=== PATIENT | female | born 1935 | race Caucasian/White ===

== ENCOUNTER 2019-04-07 03:15 | Observation (INO) ==
[2019-04-07] MEDS ORDERED: DEXTROSE 50%-WATER 50 ML SYRG IV PRN (03:28)
--- NOTE | 2019-04-07 03:35 | ERNOTE ---
Medical Problem HPI - General Time Seen by Provider: 04/07/19 03:19 Source: EMS Exam Limitations: no limitations - Immun/Allergies/Home Medications Allergies/Adverse Reactions: Allergies No Known Allergies Allergy (Verified 04/03/19 13:57) Home Medications: HOME MEDICATIONS apixaban 5 mg tablet 5 mg PO BID 12/25/17 [Last Taken Unknown] rosuvastatin 5 mg tablet 5 mg PO DAILY 12/25/17 [Last Taken Unknown] lisinopril 20 mg tablet 20 mg PO BID tab 02/04/18 [Last Taken Unknown] olopatadine 0.1 % eye drops 1 drp OP QAM ml 02/04/18 [Last Taken Unknown] loratadine 10 mg tablet 10 mg PO DAILY #30 tab 10/13/18 [Last Taken Unknown] magnesium hydroxide 400 mg/5 mL oral suspension 30 ml PO DAILY PRN #118 ml 11/07/18 [Last Taken Unknown] atenolol 25 mg tablet 12.5 mg PO BID #60 tab 11/21/18 [Last Taken Unknown] donepezil 10 mg tablet 10 mg PO HS #30 tab 11/21/18 [Last Taken Unknown] hydrochlorothiazide 25 mg tablet 25 mg PO DAILY #30 tab 11/21/18 [Last Taken Unknown] probenecid 500 mg-colchicine 0.5 mg tablet 1 tab PO BID #60 tab 11/21/18 [Last Taken Unknown] amlodipine 5 mg tablet 5 mg PO DAILY #30 tab 03/20/19 [Last Taken Unknown] Acetaminophen 1 - 2 tab PO Q6H PRN 04/07/19 [Last Taken Unknown] - History of Present History Narrative: Patient brought by EMS from the [facility] unit. With history of blood sugar down to 47 this morning. EMS state they gave an amp of D50 IV and blood sugar went up to [address] here blood sugar was down to 147 and soon after we checked and found his blood sugar to be 119. Patient denies any symptoms at this time. Patient denies any blood sugar abnormality in her medical history Timing: getting worse Severity: moderate Review of Systems - Review of Systems Constitutional: Absent: recent illness, fever, chills ENT: Absent: nose congestion, nasal drainage Respiratory: Absent: shortness of breath, cough Cardiology: Absent: chest pain Gastrointestinal/Abdominal: Absent: nausea, vomiting, abdominal pain Genitourinary: Absent: frequency, dysuria Musculoskeletal: Absent: back pain Skin: Absent: rash Neurological: Absent: headache, dizziness/light-headedness Endocrine: Present: excessive sweating Medical History (Last Reviewed 04/07/19 @ 03:31 by Ruddy Steele DO) Osteoporosis (Chronic) Congestive heart failure (CHF) (Chronic) Hypertension (Chronic) Onset Date: Unknown Hyperlipidemia (Chronic) Onset Date: Unknown Dementia (Chronic) Onset Date: Unknown Atrial fibrillation (Chronic) Onset Date: Unknown Fatigue Onset Date: Unknown Herniated disc, cervical Onset Date: Unknown Breast cancer Onset Date: Unknown Surgical History: Surgical History (Last Reviewed 04/07/19 @ 03:31 by Ruddy Steele DO) H/O colonoscopy Onset Date: ~2006 [facility] [place] [place] H/O total mastectomy of right breast Onset Date: ~1998 [facility]-modified radical mastectomy H/O: hysterectomy Onset Date: ~1959 Dr Navarro at [facility] History of thyroidectomy Onset Date: ~1963 [facility] Hx of cholecystectomy Onset Date: ~2003 Dr Smith at [facility] [place], [place] reconstructive breast surgery Onset Date: ~1998 Dr Jim-[facility] Family History: Family History (Last Reviewed 04/07/19 @ 03:31 by Ruddy Steele DO) Mother Alzheimers disease Dementia Father Diabetes Social History: (Last Reviewed 04/07/19 @ 03:31 by Ruddy Steele DO) Social History: detention: Yes detention comment: Shraddha Mary Marital status: Single Highest education level completed: high school graduate Tobacco: Smoking Status: Never smoker Alcohol: alcohol intake: never Substance Use: substance use type: unknown Dietary Habits: caffeine: Yes Physical Exam - Physical Exam General Appearance: Present: wd/wn, alert, no apparent distress Head Exam: Present: normal inspection, no evidence of injury Ears, Nose, Throat: Present: normal ENT inspection Neck: Present: normal inspection, nontender Respiratory: Present: no respiratory distress, normal breath sounds, no accessory muscle use, chest nontender, lungs clear Cardiovascular/Chest: Present: regular rate, rhythm, no murmur Gastrointestinal/Abdominal: Present: normal bowel sounds, nontender, nondistended, soft Extremity Exam: Present: normal inspection, normal range of motion, no edema Neurological Exam: Present: alert, oriented, normal mood/affect, no motor/sensory deficits Skin Exam: Present: normal color, warm/dry Lymphatic Exam: Present: no adenopathy Progress - Results and Orders Patient's Lab Results:: I have reviewed the patient's lab results. Results and Orders: Laboratory Tests 04/07/19 04/07/19 03:50 03:50 WBC 9.9 Hgb 10.8 L Hct 33.1 L Plt Count 171 Sodium 136 Potassium 3.8 D Chloride 100 Anion Gap 10.5 BUN 19 Creatinine 1.02 Random Glucose 48 L Calcium 8.1 Total Bilirubin 0.2 AST 21 ALT 12 L Alkaline Phosphatase 74 Total Protein 5.9 L Albumin 2.9 L - Vital Signs Patient's Vital Signs:: I have reviewed the patient's vital signs. Vital Signs: Vital Signs 04/07/19 03:17 Temperature 36.5 C Pulse Rate 67 Respiratory Rate 16 Blood Pressure 137/82 O2 Sat by Pulse Oximetry 99 - EKG EKG #1 EKG: atrial fibrillation - with SVR. EKG read: Interp. by me - Progress/Reassessment Progress:: Unchanged Progress Note-Subjective: 04/07/19 04:00 Patient continues in a-fib and having episodes of bradycardia down into 30s, she is asymptomatic. We attempted to catch the slow episodes but they are very short and we were unable to catch it on EKG. 04/07/19 04:51 Blood sugars continued to drop see nursing notes for details. We started a liter of D10 but sugar dropped to 47. She was given an amp of D50 and D10 was allowed to continue running. 04/07/19 06:40 Blood sugars increased 30 mg/dL from last check. Will hold the D10 and see if blood sugars continue to stabilize. If not she may need to be admitted with IV D10 and close watch on her sugars. 04/07/19 06:53 Blood sugar dropped down to 105 with removal of D10 infusion. D10 was restarted. 04/07/19 07:36 Attempted to get hold of Dr. Powell who was listed on her sheet from the [place] as primary care I left a message on his main number and got no reply and secondary number was no longer in service. I spoke with Dr. Morales admissions nurse for admissions he agreed to accept the patient. Departure Clinical Impression: Hypoglycemia, Bradycardia UTI (urinary tract infection) Qualifiers: Urinary tract infection type: acute cystitis Hematuria presence: with hematuria Qualified Code(s): N30.01 - Acute cystitis with hematuria - Departure Disposition: Still a patient Condition: Stable
[2019-04-07 03:52] LABS: Hematocrit 33.1 % (37.0-47.0); Hemoglobin 10.8 gm/dL (12.5-16.0); Mean Cell Volume 93.2 fl (78-100); Mean Corpuscular Hemoglobin 30.4 pg (27-31); Mean Corpuscular Hgb Conc 32.6 g/dl (32-36); Mean Platelet Volume 11.3 fl (8-12.5); Platelet Count 171 K/mm3 (150-450); Red Blood Count 3.55 M/mm3 (4.2-5.4); Red Cell Distribution Width 14.7 % (11.5-14.0); White Blood Count 9.9 K/mm3 (4.0-10.5)
[2019-04-07 03:56] LABS: Total Cells Counted 100
[2019-04-07] MEDS ORDERED: DEXTROSE 10 % IN WATER 1,000 ML IV ONE (03:59)
[2019-04-07 04:05] LABS: Albumin * 2.9 gm/dl (3.4-5.0); Anion Gap 10.5 mmol/L (6.8-13.8); BUN/Creatinine Ratio 18.6 (9.0-21.6); Bilirubin, Total 0.2 mg/dL (0.0-1.1); Ca. Corrected For Albumin 8.7 mg/dL (8.4-10.2); Calcium * 8.1 mg/dL (7.9-10.9); Carbon Dioxide 29.3 mmol/L (24-32.6); Potassium 3.8 mmol/L (3.4-4.6); Total Protein 5.9 gm/dL (6.2-8.2)
[2019-04-07 04:10] LABS: Band 4 % (0-2.0); Eosinophil 2 % (0-3); Immature Granulocyte 2 (0-1); Lymphocyte 24 % (20-51); Monocyte 11 % (0-9); Neutrophil 57 % (42-75); Neutrophil # 5.6 K/mm3 (1.3-6.0)
[2019-04-07 04:11] LABS: Poikilocytosis 1+
[2019-04-07 04:54] LABS: Urine Bilirubin Negative (NEGATIVE); Urine Blood 25 /ul (NEGATIVE); Urine Ketone Negative (NEGATIVE); Urine Protein Negative (NEGATIVE); Urine Specific Gravity 1.015 SP.GR. (1.005-1.010); Urine Urobilinogen Normal (NORMAL); Urine pH 5.5 pH (5.0-7.0)
[2019-04-07 05:02] LABS: Urine Appearance Cloudy (CLEAR); Urine Bacteria 2+; Urine Color Yellow; Urine Nitrite Positive (NEGATIVE); Urine RBC 0-5 /hpf (0-5)
[2019-04-07] MEDS ORDERED: cefTRIAXone SODIUM 1,000 MG/100 ML BAG IV ONE (06:02)
[2019-04-07] MEDS ORDERED: DEXTROSE 10 % IN WATER 1,000 ML IV SCH (09:30)
[2019-04-07] MEDS ORDERED: MAGNESIUM HYDROXIDE 30 ML UDC PO PRN (19:41)
[2019-04-07] MEDS ORDERED: ACETAMINOPHEN 500 MG TABLET PO PRN (19:41)
[2019-04-07] MEDS ORDERED: ROSUVASTATIN CALCIUM 10 MG TABLET PO SCH (21:00)
[2019-04-07] MEDS ORDERED: DONEPEZIL HCL 10 MG TABLET PO SCH (21:00)
[2019-04-07] MEDS: amLODIPine BESYLATE 5 MG TABLET PO SCH (21:16)
[2019-04-07] MEDS: HYDROCHLOROTHIAZIDE 25 MG TABLET PO SCH (21:16)
[2019-04-07] MEDS: APIXABAN 5 MG TABLET PO SCH (21:16)
[2019-04-07] MEDS ORDERED: LISINOPRIL 10 MG TABLET ONE (21:37)
[2019-04-07] MEDS: LISINOPRIL 20 MG TABLET PO SCH (21:40)
[2019-04-07] MEDS: COLCHICINE 0.6 MG TABLET PO SCH (21:41)
[2019-04-07] MEDS: PROBENECID 500 MG TABLET PO SCH (21:41)
--- NOTE | 2019-04-07 23:39 | HP ---
Chief Complaint - Chief Complaint Date of Service: 04/07/19 Time of Service: 12:45 Chief Complaint: Hypoglycemia History of Present Illness: Stacy is an 83 yo female with hypertension and dementia. She resides at [facility]. She does not have a history of diabetes or hypoglycemia but was found to have low blood sugars as low as 40s at [facility]. She was given food to increase glucose. Glucose would improve but she continued to require more and more food to keep her sugars normal before it would drop again. With continued episodes of hypoglycemia she was sent to [facility] ER by EMS. Enroute she was given amp of D50 due to hypoglycemia again in the 40s. In the ER she was give fluids including D10, but every time the glucose corrected and the glucose infusion was discontinued she would drop again. She does not take medications that would lower blood sugars and there is no report of incorrect medications being given or a concern that she took another residents medications. She has otherwise been in her usual state of health without any concerns. She has chronic dementia and history from the patient is limited. She has no concerns at this time. Medical History (Last Reviewed 04/07/19 @ 08:33 by Annetta Gutierrez RN) Osteoporosis (Chronic) Congestive heart failure (CHF) (Chronic) Hypertension (Chronic) Onset Date: Unknown Hyperlipidemia (Chronic) Onset Date: Unknown Dementia (Chronic) Onset Date: Unknown Atrial fibrillation (Chronic) Onset Date: Unknown Fatigue Onset Date: Unknown Herniated disc, cervical Onset Date: Unknown Breast cancer Onset Date: Unknown Surgical History: Surgical History (Last Reviewed 04/07/19 @ 08:33 by Annetta Gutierrez RN) H/O colonoscopy Onset Date: ~2006 Dr Mary Ellen Schneider at [facility] in [place], [place] H/O total mastectomy of right breast Onset Date: ~1998 [facility]-modified radical mastectomy H/O: hysterectomy Onset Date: ~1959 Dr Navarro at [facility] History of thyroidectomy Onset Date: ~1963 [facility] Hx of cholecystectomy Onset Date: ~2003 Dr Smith at [facility] in [place], [place] reconstructive breast surgery Onset Date: ~1998 Dr Jim-[facility] Family History: Family History (Last Reviewed 04/07/19 @ 08:33 by Annetta Gutierrez RN) Mother Alzheimers disease Dementia Father Diabetes Social History: (Last Reviewed 04/07/19 @ 08:33 by Annetta Gutierrez RN) Social History: longterm: Yes longterm comment: Shraddha Hernandez Marital status: Single Highest education level completed: high school graduate Tobacco: Smoking Status: Never smoker Alcohol: alcohol intake: never Substance Use: substance use type: unknown Dietary Habits: caffeine: Yes Review Of Systems (GEN) - Review of Systems Additional Comments: ROS is difficult due to dementia Immunizations: IMMUNIZATION HX History of Influenza Vaccine More Information Required Hx Pneumococcal Vaccination More Information Required Allergies/Adverse Reactions: Allergies Allergy/AdvReac Type Severity Reaction Status Date / Time No Known Allergies Allergy Verified 04/07/19 08:33 Home Medications: HOME MEDICATIONS apixaban 5 mg tablet 5 mg PO BID 12/25/17 [Last Taken Unknown] rosuvastatin 5 mg tablet 5 mg PO .QHS 12/25/17 [Last Taken Unknown] lisinopril 20 mg tablet 20 mg PO BID tab 02/04/18 [Last Taken Unknown] olopatadine 0.1 % eye drops 1 drp OP QAM ml 02/04/18 [Last Taken Unknown] loratadine 10 mg tablet 10 mg PO DAILY #30 tab 10/13/18 [Last Taken Unknown] magnesium hydroxide 400 mg/5 mL oral suspension 30 ml PO DAILY PRN #118 ml 11/07/18 [Last Taken Unknown] atenolol 25 mg tablet 12.5 mg PO BID #60 tab 11/21/18 [Last Taken Unknown] donepezil 10 mg tablet 10 mg PO HS #30 tab 11/21/18 [Last Taken Unknown] hydrochlorothiazide 25 mg tablet 25 mg PO DAILY #30 tab 11/21/18 [Last Taken Unknown] probenecid 500 mg-colchicine 0.5 mg tablet 1 tab PO BID #60 tab 11/21/18 [Last Taken Unknown] amlodipine 5 mg tablet 5 mg PO DAILY #30 tab 03/20/19 [Last Taken Unknown] Acetaminophen 1 - 2 tab PO Q6H PRN 04/07/19 [Last Taken Unknown] Exam - Exam Vital Signs: Vital Signs - Last Taken Temp 36.4 C 04/07/19 22:11 Pulse 80 04/07/19 22:11 Resp 24 H 04/07/19 22:11 BP 177/67 H 04/07/19 22:11 Pulse Ox 97 04/07/19 22:11 Constitutional: Present: Alert, Cooperative, No distress. Absent: Oriented x3 Eye Exam: bilateral eye: normal inspection Respiratory: Present: lungs clear, normal breath sounds Cardiovascular/Chest: Present: irregularly irregular Peripheral Pulses: radial (R): 2+, radial (L): 2+ Abdomen: Present: Normal bowel sounds, soft, nontender, nondistended Skin Exam: Present: normal color, warm/dry, no cyanosis Eye contact: Present: cooperative, good eye contact, normal speech Thoughts: Absent: delusions Diagnostic Studies: Abnormal Lab Results 04/07/19 04/07/19 04/07/19 Range/Units 03:50 03:50 04:55 RBC 3.55 L (4.2-5.4) M/mm3 Hgb 10.8 L (12.5-16.0) gm/dL Hct 33.1 L (37.0-47.0) % RDW 14.7 H (11.5-14.0) % Band Neuts % (Manual) 4 H (0-2.0) % Monocytes % (Manual) 11 H (0-9) % Immature Granulocytes 2 H (0-1) Monocytes # (Manual) 1.1 H (0.0-1.0) k/mm3 Est GFR (Non-Af Amer) 55 L (60-130) mL/min Random Glucose 48 L (70-110) mg/dL ALT 12 L (19-67) U/L Total Protein 5.9 L (6.2-8.2) gm/dL Albumin 2.9 L (3.4-5.0) gm/dl Urine Blood 25 H (NEGATIVE) /ul Urine Nitrate Positive H (NEGATIVE) Ur Leukocyte Esterase 100 H (NEGATIVE) /ul Urine WBC 10-25 H (0-5) /hpf Ur Epithelial Cells 5-10 H (0-5) /hpf Urine Bacteria 2+ H (NONE) Laboratory Results WBC 9.9 K/mm3 (4.0-10.5) 04/07/19 03:50 RBC 3.55 M/mm3 (4.2-5.4) L 04/07/19 03:50 Hgb 10.8 gm/dL (12.5-16.0) L 04/07/19 03:50 Hct 33.1 % (37.0-47.0) L 04/07/19 03:50 MCV 93.2 fl (78-100) 04/07/19 03:50 MCH 30.4 pg (27-31) 04/07/19 03:50 MCHC 32.6 g/dl (32-36) 04/07/19 03:50 RDW 14.7 % (11.5-14.0) H 04/07/19 03:50 Plt Count 171 K/mm3 (150-450) 04/07/19 03:50 MPV 11.3 fl (8-12.5) 04/07/19 03:50 Neutrophils % (Manual) 57 % (42-75) 04/07/19 03:50 Band Neuts % (Manual) 4 % (0-2.0) H 04/07/19 03:50 Lymphocytes % (Manual) 24 % (20-51) 04/07/19 03:50 Monocytes % (Manual) 11 % (0-9) H 04/07/19 03:50 Eosinophils % (Manual) 2 % (0-3) 04/07/19 03:50 Immature Granulocytes 2 (0-1) H 04/07/19 03:50 Neutrophils # (Manual) 5.6 K/mm3 (1.3-6.0) 04/07/19 03:50 Lymphocytes # (Manual) 2.4 k/mm3 (1.5-3.5) 04/07/19 03:50 Monocytes # (Manual) 1.1 k/mm3 (0.0-1.0) H 04/07/19 03:50 Eosinophils # (Manual) 0.2 k/mm3 (0.0-0.7) 04/07/19 03:50 Poikilocytosis 1+ 04/07/19 03:50 Sodium 136 mmol/L (132-142) 04/07/19 03:50 Plasma Sodium 135 mmol/L (130-142) 04/07/19 03:50 Potassium 3.8 mmol/L (3.4-4.6) D 04/07/19 03:50 Chloride 100 mmol/L (97-106) 04/07/19 03:50 Carbon Dioxide 29.3 mmol/L (24-32.6) 04/07/19 03:50 Anion Gap 10.5 mmol/L (6.8-13.8) 04/07/19 03:50 BUN 19 mg/dL (3-23) 04/07/19 03:50 Creatinine 1.02 mg/dL (0.4-1.4) 04/07/19 03:50 Est GFR (Non-Af Amer) 55 mL/min (60-130) L 04/07/19 03:50 BUN/Creatinine Ratio 18.6 (9.0-21.6) 04/07/19 03:50 Random Glucose 48 mg/dL (70-110) L 04/07/19 03:50 Calcium 8.1 mg/dL (7.9-10.9) 04/07/19 03:50 Calcium Adj for Albumin 8.7 mg/dL (8.4-10.2) 04/07/19 03:50 Total Bilirubin 0.2 mg/dL (0.0-1.1) 04/07/19 03:50 AST 21 U/L (0-48) 04/07/19 03:50 ALT 12 U/L (19-67) L 04/07/19 03:50 Alkaline Phosphatase 74 U/L (50-170) 04/07/19 03:50 Total Protein 5.9 gm/dL (6.2-8.2) L 04/07/19 03:50 Albumin 2.9 gm/dl (3.4-5.0) L 04/07/19 03:50 Urine Color Yellow 04/07/19 04:55 Urine Appearance Cloudy (CLEAR) 04/07/19 04:55 Urine pH 5.5 pH (5.0-7.0) 04/07/19 04:55 Ur Specific [place] 1.015 SP.GR. (1.005-1.010) 04/07/19 04:55 Urine Protein Negative mg/dL (NEGATIVE) 04/07/19 04:55 Urine Glucose (UA) Negative mg/dL (NEGATIVE) 04/07/19 04:55 Urine Ketones Negative mg/dL (NEGATIVE) 04/07/19 04:55 Urine Blood 25 /ul (NEGATIVE) H 04/07/19 04:55 Urine Nitrate Positive (NEGATIVE) H 04/07/19 04:55 Urine Bilirubin Negative mg/dl (NEGATIVE) 04/07/19 04:55 Urine Urobilinogen Normal EU/dl (NORMAL) 04/07/19 04:55 Ur Leukocyte Esterase 100 /ul (NEGATIVE) H 04/07/19 04:55 Urine RBC 0-5 /hpf (0-5) 04/07/19 04:55 Urine WBC 10-25 /hpf (0-5) H 04/07/19 04:55 Ur Epithelial Cells 5-10 /hpf (0-5) H 04/07/19 04:55 Urine Bacteria 2+ (NONE) H 04/07/19 04:55 Urine Culture Comments Culture to follow 04/07/19 04:55 Assessment/Plan - Narrative Narrative: Stacy is an 83 yo female with chronic alzheimer's dementia with recent episodes of hypoglycemia. She is not a diabetic and does not take medications that could cause hypoglycemia. Evaluation in the ER does show suspicion of UTI and she was given Rocephin. Culture pending. There is no report of Stacy getting diabetic medication. Consider insulin secreting tumor. Consider hypoglycemia induced UTI. Will continue glucose infusion per bag followed by discontinue glucose infusion and monitoring glucose. If glucose continues to drop will continue further glucose infusion as needed. Will evaluate bloodwork for testing for endogenous and exogenous causes of hypoglycemia with C peptide, insulin, proinsulin, beta-hydroxybutarate, and sulfonylureas. Will admit to observation. Anticipate that if glucose can remain stable without further glucose infusions may be able to discharge to home tomorrow. - Assessment/Plan (1) Nondiabetic hypoglycemia Problem: Acute (2) UTI (urinary tract infection) Problem: Acute Qualifiers: Urinary tract infection type: acute cystitis Hematuria presence: with hematuria Qualified Code(s): N30.01 - Acute cystitis with hematuria (3) Alzheimers disease Problem: Chronic Qualifiers: Alzheimer's disease onset: unspecified onset Dementia behavioral disturbance: without behavioral disturbance Qualified Code(s): G30.9 - Alzheimer's disease, unspecified; F02.80 - Dementia in other diseases classified elsewhere without behavioral disturbance
[2019-04-08] MEDS ORDERED: ACETAMINOPHEN 500 MG TABLET PO PRN (07:30)
[2019-04-08] MEDS ORDERED: LORATADINE 10 MG TABLET PO SCH (09:00)
[2019-04-08] MEDS ORDERED: OLOPATADINE HCL 50 DROP BTL EACHEYE SCH (09:00)
[2019-04-08] MEDS ORDERED: CIPROFLOXACIN HCL 500 MG TABLET PO SCH (09:45)
--- NOTE | 2019-04-08 09:57 | DS ---
(1) UTI (urinary tract infection) Problem: Acute Qualifiers: Urinary tract infection type: acute cystitis Hematuria presence: with hematuria Qualified Code(s): N30.01 - Acute cystitis with hematuria (2) Nondiabetic hypoglycemia Problem: Resolved (3) Alzheimers disease Problem: Chronic Qualifiers: Alzheimer's disease onset: unspecified onset Dementia behavioral disturbance: without behavioral disturbance Qualified Code(s): G30.9 - Alzheimer's disease, unspecified; F02.80 - Dementia in other diseases classified elsewhere without behavioral disturbance Date of Discharge:: 04/08/19 Description of Stay: Stacy is an 83 yo female with chronic alzheimer's dementia who was found at the correction to have persistent hypoglycemia. She was brought to the ER who also continued to have problems with her glucose dropping despite t reatment. She was admitted on D10 fluids which was periodically stopped and glucose monitored. She required a couple bags of D10 before glucose was stable on its own. UA was suspicous for UTI and she was given a dose of rocephin in the ER. Urine culture is growing gram negative cheryle at this time. There is no report of accidentally getting diabetic medications so I believe the UTI is the cause to the hypoglycemia. She will be treated with Cipro 500mg BID x 5 days. I will have [facility] check her blood sugars ACHS for the next week and if not low may be discontinued. Procedures Performed: none Results and Findings: Pending Mircobiology Results 04/07/19 04:55 Urine,Voided Urine Culture - Preliminary Gram Negative Bacilli Lab Pending Results 04/07/19 03:50: WBC 9.9, RBC 3.55 L, Hgb 10.8 L, Hct 33.1 L, MCV 93.2, MCH 30.4, MCHC 32.6, RDW 14.7 H, Plt Count 171, MPV 11.3, Neutrophils % (Manual) 57, Band Neuts % (Manual) 4 H, Lymphocytes % (Manual) 24, Monocytes % (Manual) 11 H, Eosinophils % (Manual) 2, Immature Granulocytes 2 H, Neutrophils # (Manual) 5.6, Lymphocytes # (Manual) 2.4, Monocytes # (Manual) 1.1 H, Eosinophils # (Manual) 0.2, Poikilocytosis 1+ 04/07/19 03:50: Sodium 136, Plasma Sodium 135, Potassium 3.8 D, Chloride 100, Carbon Dioxide 29.3, Anion Gap 10.5, BUN 19, Creatinine 1.02, Est GFR (Non-Af Amer) 55 L, BUN/Creatinine Ratio 18.6, Random Glucose 48 L, Calcium 8.1, Calcium Adj for Albumin 8.7, Total Bilirubin 0.2, AST 21, ALT 12 L, Alkaline Phosphatase 74, Total Protein 5.9 L, Albumin 2.9 L 04/07/19 04:55: Urine Color Yellow, Urine Appearance Cloudy, Urine pH 5.5, Ur Specific [place] 1.015, Urine Protein Negative, Urine Glucose (UA) Negative, Urine Ketones Negative, Urine Blood 25 H, Urine Nitrate Positive H, Urine Bilirubin Negative, Urine Urobilinogen Normal, Ur Leukocyte Esterase 100 H, Urine RBC 0-5, Urine WBC 10-25 H, Ur Epithelial Cells 5-10 H, Urine Bacteria 2+ H, Urine Culture Comments Culture to follow Discharge Location: [facility] Disposition: Intermediate Care Facility ICF Condition: Stable Level of Care: ICF Discharge Activity: Activity as tolerated Discharge Diet: General/regular food Referrals: Laura Mack ARNP [Avionics Engineer] - (Routine follow up) Problem Oriented Discharge Instructions to Patient/Family: Urinary Tract Infection, Adult, [id number], Hypoglycemia, [id number] Additional Patient Instructions (free text): Check glucose by finger stick ACHS for 7 days and if no episodes of hypoglycemia may discontinue finger stick checks. Prescriptions (Any new or edited meds): Ciprofloxacin HCl [Cipro] 500 mg PO BID #10 tab Transmission Status: Pending to [facility] Complete Home Medications List: Complete Home Medication List: apixaban 5 mg tablet 5 mg PO BID 12/25/17 rosuvastatin 5 mg tablet 5 mg PO .QHS 12/25/17 lisinopril 20 mg tablet 20 mg PO BID tab 02/04/18 olopatadine 0.1 % eye drops 1 drp OP QAM ml 02/04/18 loratadine 10 mg tablet 10 mg PO DAILY #30 tab 10/13/18 magnesium hydroxide 400 mg/5 mL oral suspension 30 ml PO DAILY PRN #118 ml 11/07/18 atenolol 25 mg tablet 12.5 mg PO BID #60 tab 11/21/18 donepezil 10 mg tablet 10 mg PO HS #30 tab 11/21/18 hydrochlorothiazide 25 mg tablet 25 mg PO DAILY #30 tab 11/21/18 probenecid 500 mg-colchicine 0.5 mg tablet 1 tab PO BID #60 tab 11/21/18 amlodipine 5 mg tablet 5 mg PO DAILY #30 tab 03/20/19 Acetaminophen 1 - 2 tab PO Q6H PRN 04/07/19 Ciprofloxacin HCl [Cipro] 500 mg PO BID #10 tab 04/08/19
[2019-04-08] MEDS: APIXABAN 5 MG TABLET PO SCH (10:02)
[2019-04-08] MEDS: LISINOPRIL 20 MG TABLET PO SCH (10:03)
[2019-04-08] MEDS: PROBENECID 500 MG TABLET PO SCH (10:03)
[2019-04-08] MEDS: COLCHICINE 0.6 MG TABLET PO SCH (10:03)
[2019-04-08] MEDS: HYDROCHLOROTHIAZIDE 25 MG TABLET PO SCH (10:04)
[2019-04-08] MEDS: amLODIPine BESYLATE 5 MG TABLET PO SCH (10:04)
[2019-04-08 12:59] VITALS: BP 159/50
[2019-04-10 06:12] LABS: Beta-Hydroxybutyrate 0.05 mmol/L; Insulin 14.4 uIU/mL (2.0-19.6)
== END 2019-04-08 13:10 ==
LOC: MS 03:15 → ER 03:15 → MS 08:10
PROVIDERS: ADMIT Family Medicine; ATTEND Family Medicine
CPT/HCPCS: 36415; 80053; 81001; 82010; 83525; 84206; 84681; 85025; 87077; 87081; 87086; 87186; 93005; 93041; 96365; 96366; 96367; 96375; 99285; G0378